=== PATIENT | male | born 1945 | race African-American/Black ===

== ENCOUNTER 2018-05-27 01:58 | Observation (INO) ==
--- NOTE | 2018-05-27 03:05 | ED ---
HPI General Chief complaint: Recheck/Abnormal Lab/Rx Stated complaint: Mecical?evac Time Seen by Provider: 05/27/18 02:56 History of Present Illness HPI narrative: The patient is a 72 year old male who presents to the [facility] emergency department with a history of low heart rate [facility] The patient is unsure when this was first noticed by the penitentiary staff. The patient is a resident at the [facility]. According to the nurse that is taking care of the patient, report was obtained from the penitentiary that the patient does have a history of bradycardia, however it was lower than usual, therefore the patient's doctor recommended he come to the emergency department for evaluation. The patient's heart rate was in the 30s. The patient's heart rate was briefly in the 30s in the emergency department, however in general it is in the 40s. The patient denies having any chest pain currently, however he does report having intermittent chest pain in the past. He reports that 10 years ago he did have a coronary artery bypass graft procedure done. He is unsure when he last had a stress test. He reports that he does take a blood thinner daily, therefore he is not on any aspirin. The patient reports that his only complaint currently is pain in his arms and legs related to neuropathy. He reports that this is chronic. Otherwise, the patient denies having any known recent fevers, cough or congestion, lightheaded sensation, neck pain, worsening shortness of breath ( admits to chronic dyspnea on exertion), abdominal pain, vomiting, diarrhea, urinary symptoms, or neurologic symptoms. Related Data Home Medications Medication Instructions Recorded Confirmed albuterol sulfate [Ventolin HFA] 1 puff INHALATION Q12H PRN 05/27/18 05/27/18 atorvastatin 20 mg PO DAILY 05/27/18 05/27/18 baclofen 10 mg PO BID 05/27/18 05/27/18 carboxymethylcellulose sodium 1 drp OPHTHALMIC (EYE) Q4-6H PRN 05/27/18 05/27/18 [Refresh Celluvisc] clopidogrel 75 mg PO DAILY 05/27/18 05/27/18 donepezil 10 mg PO DAILY 05/27/18 05/27/18 levofloxacin [Levaquin] 250 mg PO DAILY 05/27/18 05/27/18 [id number] [Creon] 1 cap PO QID 05/27/18 05/27/18 losartan 25 mg PO DAILY 05/27/18 05/27/18 midodrine 5 mg PO DAILY 05/27/18 05/27/18 omega-3 fatty acids-fish oil [Fish 2 cap PO DAILY 05/27/18 05/27/18 Oil] oxybutynin chloride 5 mg PO DAILY 05/27/18 05/27/18 saliva stimulant comb. no.3 1 applic MUCOUS MEMBRANE Q3H 05/27/18 05/27/18 [Biotene Moisturizing Mouth] sertraline 200 mg PO DAILY 05/27/18 05/27/18 tamsulosin 0.4 mg PO HS 05/27/18 05/27/18 trazodone 100 mg PO HS 05/27/18 05/27/18 white petrolatum-mineral oil 1 applic OPHTHALMIC (EYE) HS 05/27/18 05/27/18 [Refresh Lacri-Lube] Allergies Allergy/AdvReac Type Severity Reaction Status Date / Time tetracycline Allergy Severe unknown Verified 05/27/18 03:07 Review of Systems ROS Unobtainable All other systems reviewed negative except as stated in HPI [facility] Medical History Medical History Anemia (Acute) Back pain (Acute) Benign prostate hyperplasia (Acute) Bradycardia (Acute) Cerebral infarction (Acute) Chronic kidney disease (Acute) Chronic obstruct airways disease (Acute) Diabetes (Acute) Dry eye (Acute) Heart failure (Acute) Hyperlipidemia (Acute) Hypertension (Acute) Incontinence (Acute) Migraine (Acute) Neuropathy (Acute) Nightmare disorder (Acute) Post-trauma syndrome (Acute) Urinary tract infection (Acute) Surgical History Surgical History History of coronary artery bypass graft (Acute) Family History Family History Other Family history non-contributory Social History Social History Substance History: No History of Abuse Second Hand Smoke Exposure: No Smoking Status: Former smoker Tobacco Type: Cigarettes How Often Do You Have a Drink Containing Alcohol: Never Recent Travel in [facility] within the Last 8 Weeks: No Recent Out of Country Travel within the Last 8 Weeks: No Immunization History Tetanus Immunization: Unable to Assess Hx Influenza Vaccine This Season: Unable to Assess Exam [facility] Head: normocephalic and atraumatic Nose: no nasal discharge and no epistaxis Mouth: moist mucous membranes Eyes Sclera: normal sclerae Pupils: PERRL Neck Neck: trachea midline and no JVD Resp Effort & Inspection: no use of accessory muscles Auscultation: clear to auscultation bilaterally Cardio Rate: bradycardic (Sinus bradycardia and the upper 40s-50s with no pulse deficits to the extremities on simultaneous auscultation and palpation of his radial artery) Rhythm: regular rhythm Heart Sounds: no gallops, no murmurs and no rubs GI Inspection: non-distended Palpation: soft, no hepatosplenomegaly and nontender Skin General: dry skin (warm) Neuro General: alert, awake and oriented x3 Cranial Nerves: CN's II-XI intact bilaterally Speech: speech normal Motor: no movement abnormalities noted Sensory Exam: no sensory deficits noted Extrem General: normal to inspection, no clubbing, no cyanosis and no edema Psych Mood: congruent mood Affect: normal affect Judgment: judgment good Course Hospital Course: During the course of the patient's emergency department visit, the patient's history, examination, and differential diagnosis were reviewed with the patient. The patient was placed on a equipment monitor phototypesetting with oximetry and frequent blood pressure monitoring. The patient had IV access obtained and blood work sent for analysis. The patient was placed on a equipment monitor phototypesetting and was noted to have a heart rate in the. This appears to be a sinus bradycardia as P waves are noted. An EKG has been ordered. The Patient's blood pressure on arrival was 167/72. The patient denies having any acute complaints currently. Consultations Consultation #1: The patient's case including history, pertinent physical examination findings, and laboratory studies were discussed with Dr. White. It was agreed that the patient would be admitted to the hospitalist service. Initial Documented Vital Signs Temperature 98.5 F 05/27/18 02:05 Pulse Rate 56 L 05/27/18 02:05 Respiratory Rate 18 05/27/18 02:05 Blood Pressure 163/85 H 05/27/18 02:05 Pulse Oximetry 96 05/27/18 02:05 Last Documented Vital Signs Temperature 98.3 F 05/27/18 16:00 Pulse Rate 55 L 05/27/18 16:00 Respiratory Rate 16 05/27/18 16:00 Blood Pressure 145/65 H 05/27/18 16:00 Pulse Oximetry 97 05/27/18 16:00 Medical Decision Making MDM Narrative Medical decision making narrative: The patient's diagnostic evaluation is remarkable for , PT PTT unremarkable, normal white count 7.7 with a monocytosis at 13.4, hemoglobin noted to be 10.5 CMP is remarkable for a sodium of 147, GFR 72, chloride 113, calcium 8.2, BUN is 16, creatinine 1.19, BNP is 133, CPK 60, lipase 305, troponin I less than 0.02. Chest x-ray shows postsurgical changes, minimal airspace disease at the left lung base likely atelectasis. The patient' s EKG shows no acute ST segment elevation or other ischemic changes. The patient has been persistently bradycardic in the emergency department. The patient reports having intermittent chest pain. The patient will be admitted to the hospital for continued evaluation, telemetry. He reviewed the patient's medication record reveals that the patient is not on any rate lowering medications according to his medication regimen record from the [place]. as there is no explanation for the patient's worsening bradycardia, the patient will be admitted to the hospital. The patient's results were discussed with the patient, including the plan of care. I explained that further testing and/ or monitoring is indicated based on the patient's history, examination, and/ or laboratory findings. Therefore, I recommended admission for additional evaluation. The patient expressed understanding and was agreeable with this plan. The patient was admitted to the hospital in guarded condition on telemetry and sent to a bed under the care of [facility] service. Differential Diagnosis Differential Diagnosis: Bradycardia related to sick sinus syndrome, versus medication side effect, versus acute coronary syndrome Medical Records Medical records reviewed: Yes I reviewed the patient's medical records. Lab Data Lab results reviewed: Yes I reviewed the patient's lab results. Result diagrams: 05/27/18 03:20 05/27/18 03:20 Lab Results 05/27/18 05/27/18 05/27/18 Range/Units 03:20 03:20 03:20 WBC 7.7 (4.0-11.0) th/mm3 RBC 3.67 L (4.50-5.90) mil/mm3 Hgb 10.5 L (13.0-17.0) gm/dL Hct 31.5 L (39.0-51.0) % MCV 85.9 (80.0-100.0) fL MCH 28.6 (27.0-34.0) pg MCHC 33.3 (32.0-36.0) % RDW 15.1 (11.6-17.2) % Plt Count 316 (150-450) th/mm3 MPV 9.1 (7.0-11.0) fL Neut % (Auto) 53.7 (16.0-70.0) % Lymph % (Auto) 28.9 (9.0-44.0) % Wallace % (Auto) 13.4 H (0.0-8.0) % Eos % (Auto) 3.0 (0.0-4.0) % Baso % (Auto) 1.0 (0.0-2.0) % Neut # (Auto) 4.1 (1.8-7.7) th/mm3 Lymph # (Auto) 2.2 (1.0-4.8) th/mm3 Wallace # (Auto) 1.0 H (0.0-0.9) th/mm3 Eos # (Auto) 0.2 (0.0-0.4) th/mm3 Baso # (Auto) 0.1 (0.0-0.2) th/mm3 WBC Differential . Differential Comment Auto diff final PT 11.2 (9.8-11.6) sec INR 1.1 Ratio APTT 22.2 L (24.3-30.1) sec Sodium 147 H (136-145) meq/L Potassium 3.5 (3.5-5.1) meq/L Chloride 113 H (98-107) meq/L Carbon Dioxide 25.4 (21.0-32.0) meq/L Anion Gap 9 (5-15) meq/L BUN 16 (7-18) mg/dL Creatinine 1.19 (0.60-1.30) mg/dL Estimated GFR 72 L (>89) mL/min Random Glucose 103 (74-106) mg/dL Calcium 8.2 L (8.5-10.1) mg/dL Magnesium 1.9 (1.5-2.5) mg/dL Total Bilirubin 0.3 (0.2-1.0) mg/dL AST 16 (15-37) U/L ALT 15 (12-78) U/L Alkaline Phosphatase 65 (45-117) U/L Total Creatine Kinase 60 (39-308) U/L Troponin I Less than 0.02 L (0.02-0.05) ng/mL B-Natriuretic Peptide (0-100) pg/mL Total Protein 6.8 (6.4-8.2) g/dL Albumin 3.0 L (3.4-5.0) g/dL Lipase 305 (73-393) U/L 05/27/18 05/27/18 05/27/18 Range/Units 03:20 09:51 14:37 WBC (4.0-11.0) th/mm3 RBC (4.50-5.90) mil/mm3 Hgb (13.0-17.0) gm/dL Hct (39.0-51.0) % MCV (80.0-100.0) fL MCH (27.0-34.0) pg MCHC (32.0-36.0) % RDW (11.6-17.2) % Plt Count (150-450) th/mm3 MPV (7.0-11.0) fL Neut % (Auto) (16.0-70.0) % Lymph % (Auto) (9.0-44.0) % Wallace % (Auto) (0.0-8.0) % Eos % (Auto) (0.0-4.0) % Baso % (Auto) (0.0-2.0) % Neut # (Auto) (1.8-7.7) th/mm3 Lymph # (Auto) (1.0-4.8) th/mm3 Wallace # (Auto) (0.0-0.9) th/mm3 Eos # (Auto) (0.0-0.4) th/mm3 Baso # (Auto) (0.0-0.2) th/mm3 WBC Differential Differential Comment PT (9.8-11.6) sec INR Ratio APTT (24.3-30.1) sec Sodium (136-145) meq/L Potassium (3.5-5.1) meq/L Chloride (98-107) meq/L Carbon Dioxide (21.0-32.0) meq/L Anion Gap (5-15) meq/L BUN (7-18) mg/dL Creatinine (0.60-1.30) mg/dL Estimated GFR (>89) mL/min Random Glucose (74-106) mg/dL Calcium (8.5-10.1) mg/dL Magnesium (1.5-2.5) mg/dL Total Bilirubin (0.2-1.0) mg/dL AST (15-37) U/L ALT (12-78) U/L Alkaline Phosphatase (45-117) U/L Total Creatine Kinase 58 81 (39-308) U/L Troponin I Less than 0.02 L Less than 0.02 L (0.02-0.05) ng/mL B-Natriuretic Peptide 133 H (0-100) pg/mL Total Protein (6.4-8.2) g/dL Albumin (3.4-5.0) g/dL Lipase (73-393) U/L Imaging Data Radiologist's impression: ITS Impressions Chest X-Ray 05/27/18 03:07 CONCLUSION: 1. Postsurgical features. 2. Minimal airspace disease at the left lung base, likely atelectasis. ECG Data Attestation: I personally reviewed and interpreted this ECG as follows: Interpretation: Patient had an EKG done on arrival that shows a sinus bradycardia heart rate of 49, QRS duration 87 ms, QTC 423 ms. Left axis deviation is noted. No acute ST segment elevation is noted. Discharge Plan Discharge Disposition Patient Disposition: 30 Still Patient Discharge Details Discharge Problem: Bradycardia, Chest pain, rule out acute myocardial infarction Physicians Team ED Provider: Charu Escalante Primary Care Provider: UNKNOWN, Attending Provider: Shruti Slater Other Providers: Sarah Douglas Status ED Status: Left Department Discharge Information Discharge Date/Time: 05/27/18 06:48
[2018-05-27 03:38] LABS: Baso # (Auto) 0.1 th/mm3 (0.0-0.2); Eos # (Auto) 0.2 th/mm3 (0.0-0.4); Hematocrit 31.5 % (39.0-51.0); Hemoglobin 10.5 gm/dL (13.0-17.0); Lymph # (Auto) 2.2 th/mm3 (1.0-4.8); Lymph % (Auto) 28.9 % (9.0-44.0); Mean Corpuscular HGB Conc 33.3 % (32.0-36.0); Mean Corpuscular Hemoglobin 28.6 pg (27.0-34.0); Mean Corpuscular Volume 85.9 fL (80.0-100.0); Mean Platelet Volume 9.1 fL (7.0-11.0); Mono % (Auto) 13.4 % (0.0-8.0); Neut # (Auto) 4.1 th/mm3 (1.8-7.7); Neut % (Auto) 53.7 % (16.0-70.0); Platelet Count 316 th/mm3 (150-450); Red Blood Count 3.67 mil/mm3 (4.50-5.90); Red Cell Distribution Width 15.1 % (11.6-17.2); White Blood Count 7.7 th/mm3 (4.0-11.0)
[2018-05-27 03:53] LABS: Activated Partial Thrombo Time 22.2 sec (24.3-30.1); INR 1.1 Ratio; Prothrombin Time 11.2 sec (9.8-11.6)
[2018-05-27 03:56] LABS: Alanine Aminotransferase 15 U/L (12-78); Anion Gap 9 meq/L (5-15); Aspartate Aminotransferase 16 U/L (15-37); Blood Urea Nitrogen 16 mg/dL (7-18); Calcium 8.2 mg/dL (8.5-10.1); Carbon Dioxide 25.4 meq/L (21.0-32.0); Chloride 113 meq/L (98-107); Glomerular Filtration Rate 72 mL/min (>89); Glucose,Random 103 mg/dL (74-106); Lipase 305 U/L (73-393); Magnesium 1.9 mg/dL (1.5-2.5); Potassium 3.5 meq/L (3.5-5.1); Sodium 147 meq/L (136-145)
[2018-05-27 04:00] LABS: Alkaline Phosphatase 65 U/L (45-117); Total Protein 6.8 g/dL (6.4-8.2)
[2018-05-27 04:01] LABS: Creatine Kinase 60 U/L (39-308)
--- NOTE | 2018-05-27 04:34 | XR ---
EXAM DATE: 05/27/2018 4:11 AM EDT AGE/SEX: 72 years / Male INDICATIONS: Chest pain. CLINICAL DATA: This is the patient's initial encounter. Patient reports that signs and symptoms have been present for 1 day and indicates a pain score of 7/10. MEDICAL/SURGICAL HISTORY: Hypertension. Congestive heart failure. CABG. COMPARISON: No prior exams available for comparison. FINDINGS: Postsurgical features of prior median sternotomy and cardiac surgery. Lungs are mildly hypoaerated wi th minimal airspace disease in the left lung base. Cardiomediastinal contours are within normal limit s. Chronic deformity of the right clavicle. Bony thorax is intact. CONCLUSION: 1. Postsurgical features. 2. Minimal airspace disease at the left lung base, likely atelectasis. Electronically signed by: Cam Montilla MD 05/27/2018 4:33 AM EDT
[2018-05-27] MEDS ORDERED: Bisacodyl 10 MG Supp RECTAL PRN (05:07)
[2018-05-27] MEDS ORDERED: Acetaminophen 325 MG Tablet PO PRN (05:07)
[2018-05-27] MEDS: Heparin - SQ 10,000 UNITS/ML Vial SQ SCH ×2 (05:26→18:59)
[2018-05-27] MEDS: Sod Chloride 0.9% Inj 1,000 ML IV.CONT SCH ×2 (05:29→15:57)
[2018-05-27] MEDS ORDERED: Non-Formulary Drug (Donepezil [Donepezil] 10 MG) PO SCH (09:00)
[2018-05-27] MEDS: Senna/Docusate Sodium 8.6/50 MG Tablet PO SCH ×2 (09:03→20:40)
[2018-05-27] MEDS: Sertraline 100 MG Tablet PO SCH (09:32)
--- NOTE | 2018-05-27 09:32 | ECG ---
Date Performed: 05/27/2018 Time Performed: 02:10:05 PTAGE: 72 years EKG: SINUS BRADYCARDIA BORDERLINE LEFT AXIS DEVIATION NONSPECIFIC T-WAVE ABNORMALITY BORDERLINE ECG NO PREVIOUS TRACING DOCTOR: Woodrow Harvey Interpretating Date/Time 05/27/2018 09:31:15
[2018-05-27 11:05] LABS: Creatine Kinase 58 U/L (39-308)
--- NOTE | 2018-05-27 11:20 | P.HPIM ---
History of Present Illness Service: [facility] hospitalist Primary Care Physician: UNKNOWN Chief Complaint: Sent to the hospital for bradycardia History of Present Illness: 72-year-old male with a a complex medical history including coronary artery disease status post CABG, bradycardia, diabetes, history of CVA. Patient was sent to the hospital from her nursing facility for bradycardia. He is a resident at the [facility]. He does have known asymptomatic bradycardia with heart rate usually in the 40s. The nurse at the nursing facility noted his heart rate was in the 30s, therefore he was sent to the hospital. The patient reports generalized and chronic pain but specifically denies any chest pain, shortness of breath, lightheadedness, or headache. He states he does not feel any different than normal except for his generalized pain. He attributed his pain to neuropathy and states that no medication has helped him. Currently the patient denies nausea, vomiting, abdominal pain. There has been no cough or fevers. - Diagnosis (1) Bradycardia (2) Coronary artery disease (3) HTN (hypertension) (4) Depression (5) Debility Inpatient Certification: I certify that the inpatient services were ordered in accordance with Medicare regulations governing the order. This includes certification that hospital inpatient services are reasonable and necessary and in the case of services not specified as inpatient-only under 42 CFR 419.22(n), that they are appropriately provided as inpatient services in accordance to with the 2-midnight benchmark under 43 CFR 412.3(e) Review of Systems All other systems reviewed negative except as stated in HPI PMFSH - History History Provided By: Patient - Medical History Medical History: Medical History (Last Reviewed 05/27/18 @ 14:16 by Shruti Slater MD) Anemia Back pain Benign prostate hyperplasia Bradycardia Cerebral infarction Chronic kidney disease Chronic obstruct airways disease Diabetes Dry eye Heart failure Hyperlipidemia Hypertension Incontinence Migraine Neuropathy Nightmare disorder Post-trauma syndrome Urinary tract infection - Surgical History Surgical History: Surgical History (Last Updated 05/27/18 @ 14:17 by Shruti Slater MD) History of coronary artery bypass graft - Family History Family History: Family History (Last Updated 05/27/18 @ 14:17 by Shruti Slater MD) Other Family history non-contributory - Tobacco History Second Hand Smoke Exposure: No Tobacco Use In Past 30 Days: No Smoking Status: Former smoker Tobacco Type: Cigarettes - Alcohol History How Often Do You Have a Drink Containing Alcohol: Never - Substance Use History Substance History: No History of Abuse - Travel History Recent Travel in the [place] Within the Last 8 Weeks: No Recent Travel Out of the Country Within the Last 8 Weeks: No - Immunization History Tetanus Immunization: Unable to Assess Hx Influenza Vaccine This Season: Unable to Assess Medications and Allergies Active Medications: Active Medications Acetaminophen (Tylenol) 650 mg PO Q4H PRN PRN Reason: Temp > 100.4 Al Hydroxide/Mg Hydroxide (Milk Of Magnesia Liq) 30 ml PO Q12H PRN PRN Reason: Mild Constipation Atorvastatin Calcium (Lipitor) 20 mg PO DAILY [facility] Last Admin: 05/27/18 09:03 Dose: 20 mg Bisacodyl (Dulcolax Supp) 10 mg RECTAL DAILY PRN PRN Reason: SEVERE CONSITIPATION Clopidogrel Bisulfate (Plavix) 75 mg PO DAILY [facility] Last Admin: 05/27/18 09:03 Dose: 75 mg Donepezil HCl (Aricept) 10 mg PO DAILY [facility] Heparin Sodium (Porcine) (Heparin Inj) 5,000 units SQ Q12H [facility] Last Admin: 05/27/18 05:26 Dose: 5,000 units Sodium Chloride (Ns Inj) 1,000 mls @ 70 mls/hr IV.CONT .[id number] [facility] Last Admin: 05/27/18 05:29 Dose: 70 mls/hr Lactulose (Lactulose Liq) 30 ml PO DAILY PRN PRN Reason: SEVERE CONSITIPATION Losartan Potassium (Cozaar) 25 mg PO DAILY [facility] Last Admin: 05/27/18 09:03 Dose: 25 mg Ondansetron HCl (Zofran Inj) 4 mg IV.PUSH Q6H PRN PRN Reason: NAUSEA OR VOMITING Senna/Docusate Sodium (Tiny-Colace) 1 tab PO BID [facility] Last Admin: 05/27/18 09:03 Dose: 1 tab Sennosides (Senokot) 17.2 mg PO Q12H PRN PRN Reason: Moderate Constipation Sertraline HCl (Zoloft) 200 mg PO DAILY [facility] Last Admin: 05/27/18 09:32 Dose: 200 mg Sodium Chloride (Ns Flush) 2 ml IV.FLUSH UNSCH PRN PRN Reason: FLUSH AFTER USING IV ACCESS Tamsulosin HCl (Flomax) 0.4 mg PO [facility] Trazodone HCl (Desyrel) 100 mg PO [facility] Allergies Allergy/AdvReac Type Severity Reaction Status Date / Time tetracycline Allergy Severe unknown Verified 05/27/18 03:07 Home Medications Medication Instructions Recorded Confirmed Type albuterol sulfate [Ventolin HFA] 1 puff INHALATION Q12H PRN 05/27/18 05/27/18 History atorvastatin 20 mg PO DAILY 05/27/18 05/27/18 History baclofen 10 mg PO BID 05/27/18 05/27/18 History carboxymethylcellulose sodium 1 drp OPHTHALMIC (EYE) Q4-6H PRN 05/27/18 History [Refresh Celluvisc] clopidogrel 75 mg PO DAILY 05/27/18 05/27/18 History donepezil 10 mg PO DAILY 05/27/18 05/27/18 History levofloxacin [Levaquin] 250 mg PO DAILY 05/27/18 05/27/18 History iectnl-ibkpbeel-yiiwczz [Creon] 1 cap PO QID 05/27/18 05/27/18 History losartan 25 mg PO DAILY 05/27/18 05/27/18 History midodrine 5 mg PO DAILY 05/27/18 05/27/18 History omega-3 fatty acids-fish oil [Fish 2 cap PO DAILY 05/27/18 05/27/18 History Oil] oxybutynin chloride 5 mg PO DAILY 05/27/18 05/27/18 History saliva stimulant comb. no.3 1 applic MUCOUS MEMBRANE Q3H 05/27/18 05/27/18 History [Biotene Moisturizing Mouth] sertraline 200 mg PO DAILY 05/27/18 05/27/18 History tamsulosin 0.4 mg PO HS 05/27/18 05/27/18 History trazodone 100 mg PO HS 05/27/18 05/27/18 History white petrolatum-mineral oil 1 applic OPHTHALMIC (EYE) HS 05/27/18 05/27/18 History [Refresh Lacri-Lube] Exam Vital signs: Vital Signs 05/27/18 02:05 05/27/18 02:39 05/27/18 04:30 Temperature 98.5 F Pulse Rate 56 L 46 L 44 L Respiratory Rate 18 18 18 Blood Pressure 163/85 H 163/85 H 167/72 H Pulse Oximetry 96 97 97 07/09/18 06:47 05/27/18 07:31 05/27/18 09:01 Temperature 98.0 F Pulse Rate 41 L 45 L 44 L Respiratory Rate 18 18 18 Blood Pressure 149/71 H 162/73 H 137/69 Pulse Oximetry 97 Intake & Output 05/26/18 05/27/18 05/27/18 18:59 06:59 18:59 Weight 68.492 kg Narrative: GENERAL: Elderly and frail male, in no apparent distress. CARDIOVASCULAR: Normal rate and regular rhythm without murmurs, gallops, or rubs. RESPIRATORY: Good respiratory efforts. Breath sounds equal and clear to auscultation bilaterally. GASTROINTESTINAL: Abdomen soft, non-tender, non-distended. Normal active bowel sounds MUSCULOSKELETAL: Extremities without cyanosis, or edema. NEURO: Alert & Oriented x4 to person, place, time, situation. Moves all ext x4. Generalized weakness PSYCH: Appropriate mood and affect. Results - Labs CBC & Chem 7: 05/27/18 03:20 05/27/18 03:20 Labs: Short CBC 05/27/18 Range/Units 03:20 WBC 7.7 (4.0-11.0) th/mm3 Hgb 10.5 L (13.0-17.0) gm/dL Hct 31.5 L (39.0-51.0) % Plt Count 316 (150-450) th/mm3 BMP 05/27/18 03:20 Sodium 147 H Potassium 3.5 Chloride 113 H Carbon Dioxide 25.4 BUN 16 Creatinine 1.19 Calcium 8.2 L Cardiac Enzymes 05/27/18 05/27/18 Range/Units 03:20 09:51 Total Creatine Kinase 60 58 (39-308) U/L Troponin I Less than 0.02 L Less than 0.02 L (0.02-0.05) ng/mL Liver Function 05/27/18 Range/Units 03:20 Total Bilirubin 0.3 (0.2-1.0) mg/dL AST 16 (15-37) U/L ALT 15 (12-78) U/L Alkaline Phosphatase 65 (45-117) U/L Albumin 3.0 L (3.4-5.0) g/dL - Imaging Impressions Chest X-Ray 05/27/18 03:07 CONCLUSION: 1. Postsurgical features. 2. Minimal airspace disease at the left lung base, likely atelectasis. Caprini VTE Risk Assessment Caprini VTE Risk Assessment: Moderate/High Risk (score >= 2) Caprini Risk Assessment Model: Point Value = 1 Point Value = 2 Point Value = 3 Point Value = 5 Age 41-60 Minor surgery BMI > 25 kg/m2 Swollen legs Varicose veins or History of unexplained or recurrent spontaneous Oral contraceptives or hormone replacement Sepsis (< 1 month) Serious lung disease, including pneumonia (< 1 month) Abnormal pulmonary function Acute myocardial infarction Congestive heart failure (< 1 month) History of inflammatory bowel disease Medical patient at bed rest Age 61-74 Arthroscopic surgery Major open surgery (> 45 min) Laparoscopic surgery (> 45 min) Malignancy Confined to bed (> 72 hours) Immobilizing plaster cast Central venous access Age >= 75 History of VTE Family history of VTE Factor V Leiden Prothrombin [id number] Lupus anticoagulant Anticardiolipin antibodies Elevated serum homocysteine Heparin-induced thrombocytopenia Other congenital or acquired thrombophilia Stroke (< 1 month) Elective arthroplasty Hip, pelvis, or leg fracture Acute spinal cord injury (< 1 month) Prophylaxis Regimen: Total Risk Factor Score Risk Level Prophylaxis Regimen 0-1 Low Early ambulation 2 Moderate Order ONE of the following: *Sequential Compression Device (SCD) *Heparin 5000 units SQ BID 3-4 Higher Order ONE of the following medications: *Heparin 5000 units SQ TID *Enoxaparin/Lovenox 40 mg SQ daily (WT < 150 kg, CrCl > 30 mL/min) *Enoxaparin/Lovenox 30 mg SQ daily (WT < 150 kg, CrCl > 10-29 mL/min) *Enoxaparin/Lovenox 30 mg SQ BID (WT < 150 kg, CrCl > 30 mL/min) AND/OR *Sequential Compression Device (SCD) 5 or more Highest Order ONE of the following medications: *Heparin 5000 units SQ TID (Preferred with Epidurals) *Enoxaparin/Lovenox 40 mg SQ daily (WT < 150 kg, CrCl > 30 mL/min) *Enoxaparin/Lovenox 30 mg SQ daily (WT < 150 kg, CrCl > 10-29 mL/min) *Enoxaparin/Lovenox 30 mg SQ BID (WT < 150 kg, CrCl > 30 mL/min) AND *Sequential Compression Device (SCD) Assessment and Plan - Assessment (1) Bradycardia Code(s): R00.1 - Bradycardia, unspecified Status: Acute Plan: Patient has known bradycardia but rate lower than usual. He is asymptomatic and his HR now in the 40's. Not on any AV danyelle blocking agents. Cardiology consulted. Appreciate assistance (2) Coronary artery disease Code(s): I25.10 - Atherosclerotic heart disease of [place] coronary artery without angina pectoris Status: Chronic Plan: Continue Plavix, lipitor (3) HTN (hypertension) Code(s): I10 - Essential (primary) hypertension Status: Acute (4) Depression Code(s): F32.9 - Major depressive disorder, single episode, unspecified Status : Acute Plan: Continue home meds. Stable (5) Debility Code(s): R53.81 - Other malaise Status: Acute - Plan Continue the rest of the patient's chronic home medications for his chronic conditions. All of them stable currently. H&P: Quality - VTE Deep Vein Thrombosis/Pulmonary Embolism Present on Admission: No
--- NOTE | 2018-05-27 15:10 | ECG ---
Date Performed: 05/27/2018 Time Performed: 09:30:59 PTAGE: 72 years EKG: SINUS BRADYCARDIA MARKED LEFT AXIS DEVIATION PATTERN CONSISTENT WITH PULMONARY DISEASE NONS PECIFIC T-WAVE ABNORMALITY ABNORMAL ECG PREVIOUS TRACING : 05/27/2018 02.10 Since the previous tracing, no significant change noted DOCTOR: Woodrow Harvey Interpretating Date/Time 05/27/2018 15:09:45
--- NOTE | 2018-05-27 15:13 | MB ---
cc: Sarah Douglas MD DATE: 05/27/2018 HISTORY OF PRESENT ILLNESS: Mr. Bermudez is a 72-year-old black male with a history of coronary artery disease, coronary artery bypass, bradycardia, diabetes mellitus and CVA. He is a resident of the [facility] and was sent for bradycardia. He has history of asymptomatic bradycardia with a heart rate in the 40s. He was noticed to have heart rate in the 30s at his nursing facility and, even though, he has not had any symptoms, he was sent to the hospital for further evaluation. He complains of generalized pain, but has not had any angina, shortness of breath, dizziness or lightheadedness. His heart rate here is in the 40s and 50s. PAST MEDICAL HISTORY: Positive for coronary artery disease, coronary artery bypass, sinus bradycardia, diabetes mellitus, CVA, anemia, back pain, BPH, chronic kidney disease, congestive heart failure, dyslipidemia, hypertension, incontinence, migraine headaches, neuropathy, posttraumatic stress syndrome and UTI. MEDICATIONS: 1. Trazodone. 2. Tamsulosin. 3. Sertraline. 4. Senna. 5. Ditropan. 6. Zofran p.r.n. 7. Losartan. 8. Lipase. 9, Creon. 10. Lactulose. 11. Heparin subcutaneous. 12. Donepezil. 13. Plavix. 14. Bisacodyl. 15. Baclofen. 16. Atorvastatin 20 mg a day. 17. Milk of magnesia p.r.n. 18. Tylenol p.r.n. ALLERGIES: TETRACYCLINE. SOCIAL HISTORY: The patient does not smoke. He does not drink alcohol. FAMILY HISTORY: Negative for heart disease. REVIEW OF SYSTEMS: Otherwise negative. PHYSICAL EXAMINATION: VITAL SIGNS: Blood pressure 114/53, pulse 56 and regular. HEENT: Negative. NECK: 2+ carotid upstrokes, no bruits. LUNGS: Clear. HEART: Regular with no murmur. ABDOMEN: Soft. No bruits. EXTREMITIES: Without edema. 2+ distal pulses. NEUROLOGIC: Grossly nonfocal. EKG: Reviewed and showed sinus bradycardia at 49 beats per minute, left axis, left anterior fascicular block and nonspecific T-wave changes. LABORATORY DATA: Hemoglobin 10.5. Potassium 3.5, creatinine 1.2. Troponin less than 0.02 x2. CK 60 and 58. AST and ALT normal. BNP 133. DIAGNOSES: 1. Sick sinus syndrome with moderate sinus bradycardia, asymptomatic. 2. Coronary artery disease, history of coronary bypass. 3. Diabetes mellitus. 4. History of cerebrovascular accident. 5. Chronic kidney disease. 6. Hypertension. 7. Dyslipidemia. DISPOSITION: Mr. Bermudez was found to have sick sinus syndrome with moderate sinus bradycardia. He has minimal symptoms with his bradycardia. At this time, I believe permanent pacemaker placement has higher risk than benefit in this patient especially due to higher risk of infection. I will follow Mr. Bermudez for Cardiology during his hospitalization. MD JOSE Spencer/KEREN , 02:35 PM , 03:11 PM MTDD
[2018-05-27 16:02] LABS: Creatine Kinase 81 U/L (39-308)
[2018-05-27] MEDS ORDERED: REFRESH CELLUVISC EACH EYE PRN (16:15)
[2018-05-27] MEDS: Baclofen 10 MG Tablet PO SCH (20:39)
[2018-05-27] MEDS: Lipase/Protease/Amylase 24/76/120 DR Capsule PO SCH ×2 (20:39→22:45)
[2018-05-27] MEDS ORDERED: traZODone 100 MG Tablet PO SCH (21:00)
[2018-05-28] MEDS: Heparin - SQ 10,000 UNITS/ML Vial SQ SCH (06:11)
[2018-05-28] MEDS: Sod Chloride 0.9% Inj 1,000 ML IV.CONT SCH (06:11)
[2018-05-28 08:43] LABS: Baso # (Auto) 0.1 th/mm3 (0.0-0.2); Baso % (Auto) 0.5 % (0.0-2.0); Eos # (Auto) 0.3 th/mm3 (0.0-0.4); Hematocrit 31.9 % (39.0-51.0); Hemoglobin 10.5 gm/dL (13.0-17.0); Lymph # (Auto) 1.7 th/mm3 (1.0-4.8); Mean Corpuscular Hemoglobin 28.5 pg (27.0-34.0); Mean Corpuscular Volume 86.4 fL (80.0-100.0); Mono % (Auto) 9.7 % (0.0-8.0); Neut # (Auto) 7.1 th/mm3 (1.8-7.7); Neut % (Auto) 69.8 % (16.0-70.0); Platelet Count 296 th/mm3 (150-450); Red Blood Count 3.69 mil/mm3 (4.50-5.90); White Blood Count 10.1 th/mm3 (4.0-11.0)
[2018-05-28] MEDS ORDERED: OMEGA PO SCH (09:00)
[2018-05-28] MEDS ORDERED: [UNRECOGNIZED DRUG - OTHER] PO SCH (09:00)
[2018-05-28] MEDS: Lipase/Protease/Amylase 24/76/120 DR Capsule PO SCH (09:07)
[2018-05-28] MEDS: Baclofen 10 MG Tablet PO SCH (09:07)
[2018-05-28] MEDS: Sertraline 100 MG Tablet PO SCH (09:08)
[2018-05-28] MEDS: Senna/Docusate Sodium 8.6/50 MG Tablet PO SCH (09:08)
[2018-05-28 09:16] LABS: Carbon Dioxide 22.2 meq/L (21.0-32.0); Potassium 3.7 meq/L (3.5-5.1)
--- NOTE | 2018-05-28 10:22 | P.PNIM ---
Subjective Interval history: Patient reports he is feeling okay today. He denies chest pain or shortness of breath. No lightheadedness. Telemetry reviewed. Heart rate staying above 40. Physical Exam Vital signs: Vital Signs 05/27/18 12:00 05/27/18 16:00 05/27/18 19:25 Temperature 98.5 F 98.3 F 98.3 F Pulse Rate 56 L 55 L 50 L Respiratory Rate 18 16 16 Blood Pressure 149/63 H 145/65 H 177/70 H Pulse Oximetry 97 97 97 05/27/18 20:00 05/28/18 03:41 05/28/18 08:00 Temperature 98.0 F 98.2 F 97.3 F L Pulse Rate 45 L 46 L 50 L Respiratory Rate 15 16 20 Blood Pressure 139/65 154/65 H 166/72 H Pulse Oximetry 98 98 97 Intake & Output 05/27/18 05/28/18 05/28/18 18:59 06:59 18:59 Intake Total 1400 / 1400 1000 / 1000 Balance 1400 / 1400 1000 / 1000 Intake: IV 1000 / 1000 1000 / 1000 NS Inj 1,000 ML @ 70 mls/hr IV. 1000 / 1000 1000 / 1000 CONT .[id number] [facility] Rx#:[id number] Oral 400 / 400 Other: # Incontinent Voids 5 Date of Last Bowel Movement 05/26/18 05/26/18 # Incontinent Bowel Movements 2 Narrative: GENERAL: Elderly male in no apparent distress. CARDIOVASCULAR: Heart rate in the 50s and regular rhythm without murmurs, gallops, or rubs. RESPIRATORY: Good respiratory efforts. Breath sounds equal and clear to auscultation bilaterally. GASTROINTESTINAL: Abdomen soft, non-tender, non-distended. Normal active bowel sounds MUSCULOSKELETAL: Extremities without cyanosis, or edema. NEURO: Alert & Oriented x4 to person, place, time, situation. Moves all ext x4 PSYCH: Appropriate mood and affect. Results - Labs CBC & Chem 7: 05/28/18 06:40 05/28/18 06:40 Laboratory Results - last 24 hr 05/27/18 05/27/18 05/28/18 09:51 14:37 06:40 WBC 10.1 RBC 3.69 L Hgb 10.5 L Hct 31.9 L MCV 86.4 MCH 28.5 MCHC 33.0 RDW 15.0 Plt Count 296 MPV 10.0 Neut % (Auto) 69.8 Lymph % (Auto) 17.0 Cecil % (Auto) 9.7 H Eos % (Auto) 3.0 Baso % (Auto) 0.5 Neut # (Auto) 7.1 Lymph # (Auto) 1.7 Cecil # (Auto) 1.0 H Eos # (Auto) 0.3 Baso # (Auto) 0.1 WBC Differential . Differential Comment Auto diff final Sodium Potassium Chloride Carbon Dioxide Anion Gap BUN Creatinine Estimated GFR Random Glucose Calcium Total Creatine Kinase 58 81 Troponin I Less than 0.02 L Less than 0.02 L 05/28/18 06:40 WBC RBC Hgb Hct MCV MCH MCHC RDW Plt Count MPV Neut % (Auto) Lymph % (Auto) Cecil % (Auto) Eos % (Auto) Baso % (Auto) Neut # (Auto) Lymph # (Auto) Cecil # (Auto) Eos # (Auto) Baso # (Auto) WBC Differential Differential Comment Sodium 144 Potassium 3.7 Chloride 111 H Carbon Dioxide 22.2 Anion Gap 11 BUN 13 Creatinine 1.19 Estimated GFR 72 L Random Glucose 95 Calcium 9.0 D Total Creatine Kinase Troponin I Assessment and Plan - Assessment (1) Bradycardia Code(s): R00.1 - Bradycardia, unspecified Status: Acute Plan: Patient has known bradycardia but rate lower than usual reported at the nursing facility. He is asymptomatic and his HR now staying above the 40s. Not on any AV danyelle blocking agents. Cardiology evaluated the patient. He is at high risk for pacemaker placement. The patient himself does not want pacemaker placement either. He remained asymptomatic. He is deemed stable for discharge. (2) Coronary artery disease Code(s): I25.10 - Atherosclerotic heart disease of [place] coronary artery without angina pectoris Status: Chronic Plan: Continue Plavix, lipitor (3) HTN (hypertension) Code(s): I10 - Essential (primary) hypertension Status: Acute (4) Depression Code(s): F32.9 - Major depressive disorder, single episode, unspecified Status : Acute Plan: Continue home meds. Stable (5) Debility Code(s): R53.81 - Other malaise Status: Acute - Plan Continue the rest of the patient's chronic home medications for his chronic conditions. All of them stable currently. Discharge Planning: Discharge home in good condition Activity: Regular as tolerated Diet: Heart healthy Meds: Per med rec Follow-up with: PCP
--- NOTE | 2018-05-28 16:10 | P.PNCA ---
<Wilma Silva N - Last Filed: 05/28/18 15:57> Subjective Interval history: Pt still c/o generalized body aches. Pt c/o SOB at times and mild dizziness. Pt is on RA, O2 sat > 92%. Physical Exam Vital signs: Vital Signs 05/27/18 16:00 05/27/18 19:25 05/27/18 20:00 Temperature 98.3 F 98.3 F 98.0 F Pulse Rate 55 L 50 L 45 L Respiratory Rate 16 16 15 Blood Pressure 145/65 H 177/70 H 139/65 Pulse Oximetry 97 97 98 05/28/18 03:41 05/28/18 08:00 Temperature 98.2 F 97.3 F L Pulse Rate 46 L 50 L Respiratory Rate 16 20 Blood Pressure 154/65 H 166/72 H Pulse Oximetry 98 97 Intake & Output 05/27/18 05/28/18 05/28/18 18:59 06:59 18:59 Intake Total 1400 / 1400 1000 / 1000 Balance 1400 / 1400 1000 / 1000 Intake: IV 1000 / 1000 1000 / 1000 NS Inj 1,000 ML @ 70 mls/hr IV. 1000 / 1000 1000 / 1000 CONT .[id number] [facility] Rx#:[id number] Oral 400 / 400 Other: # Incontinent Voids 5 Date of Last Bowel Movement 05/26/18 05/26/18 05/26/18 # Incontinent Bowel Movements 2 - Constitutional no acute distress - Routine HEENT Exam Eye: Present: PERRL - Routine Respiratory Exam Present: CTA bilaterally - Routine Cardiovascular Exam Present: S1, S2, bradycardia Comments: pt's rate is in the mid to upper 50's. - Routine Abdominal Exam Present: soft - Routine Extremities Exam Present: full ROM, pulses intact, normal capillary refill - Routine Neurological Exam Present: oriented X3 - Routine Psychiatric Exam Present: normal affect Assessment and Plan - Assessment (1) Sick sinus syndrome Code(s): I49.5 - Sick sinus syndrome Status: Acute (2) Diabetes Code(s): E11.9 - Type 2 diabetes mellitus without complications Status: Acute (3) Chronic kidney disease Code(s): N18.9 - Chronic kidney disease, unspecified Status: Acute (4) HTN (hypertension) Code(s): I10 - Essential (primary) hypertension Status: Acute (5) Dyslipidemia Code(s): E78.5 - Hyperlipidemia, unspecified Status: Acute (6) Coronary artery disease Code(s): I25.10 - Atherosclerotic heart disease of [place] coronary artery without angina pectoris Status: Chronic - Plan Pt has moderate sick sinus syndrome with moderate sinus bradycardia with minimal symptoms. There are no indications for pacer placement at this time due to high risk for infection. Continue with current cardiac treatment plan. The patient was seen and evaluated by Dr. Douglas who participated in care, management and decision making. <Sarah Douglas - Last Filed: 05/28/18 21:48> Physical Exam Vital signs: Vital Signs 05/28/18 03:41 05/28/18 08:00 Temperature 98.2 F 97.3 F L Pulse Rate 46 L 50 L Respiratory Rate 16 20 Blood Pressure 154/65 H 166/72 H Pulse Oximetry 98 97 Intake & Output 05/28/18 05/28/18 05/29/18 06:59 18:59 06:59 Intake Total 1000 / 1000 Balance 1000 / 1000 Intake: IV 1000 / 1000 NS Inj 1,000 ML @ 70 mls/hr IV. 1000 / 1000 CONT .[id number] [facility] Rx#:[id number] Other: Date of Last Bowel Movement 05/26/18 05/26/18 Assessment and Plan - Assessment (1) Sick sinus syndrome Code(s): I49.5 - Sick sinus syndrome Status: Acute (2) Diabetes Code(s): E11.9 - Type 2 diabetes mellitus without complications Status: Acute (3) Chronic kidney disease Code(s): N18.9 - Chronic kidney disease, unspecified Status: Acute (4) HTN (hypertension) Code(s): I10 - Essential (primary) hypertension Status: Acute (5) Dyslipidemia Code(s): E78.5 - Hyperlipidemia, unspecified Status: Acute (6) Coronary artery disease Code(s): I25.10 - Atherosclerotic heart disease of [place] coronary artery without angina pectoris Status: Chronic - Attending Attestation Patient seen and examined. I reviewed and agree with the findings and plan presented. No indication for permanent pacing at this time.
--- NOTE | 2018-05-28 16:56 | ECG ---
Date Performed: 05/27/2018 Time Performed: 18:53:05 PTAGE: 72 years EKG: SINUS BRADYCARDIA PATTERN CONSISTENT WITH PULMONARY DISEASE LEFT ANTERIOR FASCICULAR BLOCK NONSPECIFIC T-WAVE ABNORMALITY ABNORMAL ECG PREVIOUS TRACING : 05/27/2018 09.30 Since the previous tracing, no significant change noted DOCTOR: Brady Echevarria Interpretating Date/Time 05/28/2018 16:55:56
== END 2018-05-28 12:35 ==
LOC: NEPE 01:58 → NEDA 01:58 → NEPFCDU 01:58 → NEDA 06:48 → NEPFCDU 06:51
PROVIDERS: ADMIT Family Medicine; ATTEND Family Medicine
DX: I49.5 Sick sinus syndrome; Z95.1 Presence of aortocoronary bypass graft; Z87.891 Personal history of nicotine dependence; F32.9 Major depressive disorder, single episode, unspecified; I13.0 Hypertensive heart and chronic kidney disease with heart failure and stage 1 through stage 4 chronic kidney disease, or unspecified chronic kidney disease; E78.5 Hyperlipidemia, unspecified; Z79.899 Other long term (current) drug therapy; Z88.1 Allergy status to other antibiotic agents; I63.9 Cerebral infarction, unspecified; M54.9 Dorsalgia, unspecified; Z79.01 Long term (current) use of anticoagulants; D64.9 Anemia, unspecified; I25.10 Atherosclerotic heart disease of native coronary artery without angina pectoris; R53.81 Other malaise; N40.0 Benign prostatic hyperplasia without lower urinary tract symptoms; J44.9 Chronic obstructive pulmonary disease, unspecified; G89.29 Other chronic pain; R06.09 Other forms of dyspnea; E11.40 Type 2 diabetes mellitus with diabetic neuropathy, unspecified; I50.9 Heart failure, unspecified; E11.22 Type 2 diabetes mellitus with diabetic chronic kidney disease; N18.9 Chronic kidney disease, unspecified; R32 Unspecified urinary incontinence